=== PATIENT | male | born 1980 | race Caucasian/White ===

== ENCOUNTER → 2019-07-09 14:04 | Outpatient (CLI) | payer BC, SELFPAY ==
--- NOTE | ~2019-07-09 | XR_ITS ---
XR foot LT min 3V DATE: 07/09/2019 14:30 INDICATION: Left foot pain, left first toe and metatarsal pain. No injury. History of gout. TECHNIQUE: 4 views COMPARISON: None FINDINGS: No fracture or dislocation, periosteal reaction or bone destruction is detected. There is a chronic nonspecific benign defect of the tuft of the distal phalanx of the third digit. Joint spaces are relatively preserved. No erosive change is evident. IMPRESSION: No significant abnormality Reviewed, dictated and finalized at location B. HER [facility]AMA IMPRESSION: No significant abnormality
== END ==
PROVIDERS: PCP Physician Assistant; Visit Provider Physician Assistant
DX: M79.672 Pain in left foot (principal)
CPT/HCPCS: 73630